=== PATIENT | male | born 1945 | race Caucasian/White ===

== ENCOUNTER 2016-12-06 12:47 | Emergency (ER) | payer MEDICARE, OTHER ==
[~2016-12-06] VITALS: Ht 177.8 cm; Wt 65.5 kg
[~2016-12-06 12:47] MED LIST: ALBU0.63 NEB; ALLO300T2 PO; LEVA500T PO; METO50TA PO; OXYC1SOL5 PO; PERI8.6T PO; PROT40TA PO; ZOFR4TAB3 SL
[2016-12-06 12:50] VITALS: BP 125/67; PULSE 90; RESP 20; O2SAT 96
[2016-12-06] MEDS ORDERED: METO50TA PO (13:38)
[2016-12-06] MEDS ORDERED: REGO40TA (13:38)
[2016-12-06] MEDS ORDERED: ALLO300T2 PO (13:38)
[2016-12-06] MEDS ORDERED: VENTAER INH (13:38)
[2016-12-06] MEDS ORDERED: PROT40TA PO (13:40)
[2016-12-06] MEDS ORDERED: ONDA4TAB7 SL (13:40)
[2016-12-06] MEDS ORDERED: SENN1TAB PO (13:40)
[2016-12-06] MEDS ORDERED: OXYC1TAB63 PO (13:40)
[2016-12-06 13:45] VITALS: BP 117/76; PULSE 87; RESP 18; O2SAT 96
[2016-12-06 13:52] VITALS: TEMP 98.6
[2016-12-06] MEDS ORDERED: SODIUM CHLORIDE 0.9% FLUSH 10 ML FLUSH IVF PRN (14:00)
--- NOTE | 2016-12-06 14:02 | PD ---
HPI Chief Complaint: General Weakness Time Seen by Provider: 13:56 Travel History International Travel<30 days: No Contact w/Intl Traveler<30days: No Traveled to known affect area: No History of Present Illness HPI Patient comes in complaining of possible pneumonia. Patient states he woke in the middle of the night having some reflux took some medication which alleviated his symptoms and he went back to sleep. Patient then awoke a few hours later felt he was wheezing in his chest. Patient concerning may have aspirated something. Patient is on chemotherapy for colon cancer and had "presumable pneumonia" this past June and was treated with Levaquin at that time. Patient denies any chest pain, shortness of breath, nausea, vomiting, abdominal pain, numbness or tingling anywhere. Patient reports when he awoke wheezing is also having some chills and rigors. Patient reports she was having some pleuritic chest pains right posterior thoracic cavity with deep inspiration that has since resolved. Denies any known fevers. Patient reports he is on chemotherapy for colon cancer and sees Dr. Campbell. 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 PFSH Past Medical History Cancer: Yes Cardiovascular Problems: Yes (septic shock hx=irreg heart rate 2014) Chemotherapy: Yes Diabetes: No Endocrine: No Gastrointestinal Disorders: Yes (CELIAC DISEASE; GERD, colon ca) GERD: Yes Genitourinary: No Hiatal Hernia: Yes Hypertension: Yes Immune Disorder: No Implanted Vascular Access Dvce: Yes (INFUSA PORT) Musculoskeletal: No Neurologic: No Psychiatric: No Reproductive: No Respiratory: No Thyroid Disease: No Past Surgical History Abdominal Surgery: Yes (MANDO ING HERNIAS, r jose colectomy) AICD: No Body Medical Devices: r side infusaport Genitourinary Surgery: Yes (TURP) Joint Replacement: No Pacemaker: No Other Surgery: Yes (colon TUMOR REMOVAL) Social History Alcohol Use: Yes (occ) Tobacco Use: No Substance Use: No Allergies-Medications (Allergen,Severity, Reaction): Coded Allergies: Sulfa (Verified Allergy, Unknown, 12/06/16) Reported Meds & Prescriptions Reported Meds & Active Scripts Active Augmentin (Amoxicillin-Clavulanate) 875-125 Mg Tab 1 Tab PO BID 10 Days Accuneb 0.63 mg/3 ml (Albuterol Sulfate) 0.63 Mg/3 Ml Neb 0.63 Mg NEB Q4HR NEB Tala-Colace 8.6-50 mg (Sennosides-Docusate Sodium) 1 Tab Tab 1 Tab PO HS PRN Oxycodone/Acetaminophen 5-325 mg/5Ml (Oxycodone W/ Acetaminophen) 5 mg/325 mg Tab 1 Tab PO Q4H PRN Metoprolol Tartrate 50 mg (Metoprolol Tartrate) 50 Mg Tab 100 Mg PO BID 30 Days Reported Senna-Plus (Sennosides-Docusate Sodium) 8.6-50 Mg Tab 1 Tab PO DAILY Protonix (Pantoprazole Sodium) 40 Mg Tab 40 Mg PO DAILY Oxycodone-Acetaminophen 5-325 mg Tab 1 Tab PO Q6H PRN Ondansetron Odt 4 Mg Tab 4 Mg SL Q6HR PRN Metoprolol Tartrate 50 Mg Tab 50 Mg PO BID Allopurinol 300 Mg Tab 300 Mg PO DAILY Ventolin Hfa 18 GM Inh (Albuterol Sulfate) 90 Mcg/Act Aer 2 Puff INH Q4-6H PRN Stivarga (Regorafenib) 40 Mg Tablet Zofran ODT (Ondansetron HCl) 4 Mg Tab 4 Mg SL Q6H PRN FOR NAUSEA/VOMITING Protonix (Pantoprazole Sodium) 40 Mg Tabdr 40 Mg PO DAILY Allopurinol 300 Mg Tab 300 Mg PO DAILY Review of Systems Except as stated in HPI: all other systems reviewed are Neg Physical Exam Narrative GENERAL: Well-developed, well nourished, in no acute distress, and non-ill appearing. SKIN: Focused skin assessment warm and dry. Port noted right anterior chest wall. HEAD: Atraumatic. Normocephalic. EYES: Pupils equal and round. EOMI. No scleral icterus. No injection or drainage. ENT: No nasal bleeding or discharge. Mucous membranes pink and moist. NECK: Trachea midline. No JVD. Supple. No nuclear rigidity. CARDIOVASCULAR: Regular rate and rhythm. No murmur appreciated. RESPIRATORY: No accessory muscle use. No respiratory distress. Clear to auscultation. Breath sounds equal bilaterally. GASTROINTESTINAL: Abdomen soft, non-tender, nondistended. Hepatic and splenic margins not palpable. No pulsatile mass. MUSCULOSKELETAL: No obvious deformities. No clubbing. No cyanosis. No edema. Full range of motion. NEUROLOGICAL: Awake and alert. No obvious cranial nerve deficits. Motor grossly within normal limits. Normal speech. PSYCHIATRIC: Appropriate mood and affect; insight and judgment normal. Data Data Last Documented VS Vital Signs Date Time Temp Pulse Resp B/P Pulse Ox O2 Delivery O2 Flow Rate FiO2 12/06/16 16:21 85 16 104/72 95 Room Air 12/06/16 13:52 98.6 Orders Electrocardiogram (12/06/16 13:50) Basic Metabolic Panel (Bmp) (12/06/16 13:50) Complete Blood Count With Diff (12/06/16 13:50) Chest, Single Ap (12/06/16 13:50) Sodium Chloride 0.9% Flush (Ns Flush) (12/06/16 14:00) Ckmb (Isoenzyme) Profile (12/06/16 15:09) Magnesium (Mg) (12/06/16 15:09) Prothrombin Time / Inr (Pt) (12/06/16 15:09) Act Partial Throm Time (Ptt) (12/06/16 15:09) Troponin I (12/06/16 15:09) Labs Laboratory Tests Test 12/06/16 12/06/16 13:54 15:16 White Blood Count 11.8 TH/MM3 Red Blood Count 5.10 MIL/MM3 Hemoglobin 16.2 GM/DL Hematocrit 49.3 % Mean Corpuscular Volume 96.7 FL Mean Corpuscular Hemoglobin 31.8 PG Mean Corpuscular Hemoglobin 32.9 % Concent Red Cell Distribution Width 16.8 % Platelet Count 113 TH/MM3 Mean Platelet Volume 8.9 FL Neutrophils (%) (Auto) 84.0 % Lymphocytes (%) (Auto) 7.6 % Monocytes (%) (Auto) 8.2 % Eosinophils (%) (Auto) 0.0 % Basophils (%) (Auto) 0.2 % Neutrophils # (Auto) 9.9 TH/MM3 Lymphocytes # (Auto) 0.9 TH/MM3 Monocytes # (Auto) 1.0 TH/MM3 Eosinophils # (Auto) 0.0 TH/MM3 Basophils # (Auto) 0.0 TH/MM3 CBC Comment DIFF FINAL Differential Comment Sodium Level 138 MEQ/L Potassium Level 3.8 MEQ/L Chloride Level 101 MEQ/L Carbon Dioxide Level 24.4 MEQ/L Anion Gap 13 MEQ/L Blood Urea Nitrogen 16 MG/DL Creatinine 1.38 MG/DL Estimat Glomerular Filtration 51 ML/MIN Rate Random Glucose 108 MG/DL Calcium Level 9.1 MG/DL Magnesium Level 1.6 MG/DL Total Creatine Kinase 68 U/L Troponin I LESS THAN 0.02 NG/ML Prothrombin Time 12.8 SEC Prothromb Time International 1.2 RATIO Ratio Activated Partial 30.9 SEC Thromboplast Time MDM Medical Decision Making Medical Screen Exam Complete: Yes Emergency Medical Condition: Yes Interpretation(s) EKG reviewed by Dr. Valenzuela shows sinus rhythm with ventricular rate of 83. No STEMI. Chest x-ray read by the radiologist shows: Patchiness in the right lung base consistent with possible pneumonia. Clinical correlation is recommended. Differential Diagnosis Pneumonia, pleurisy, electrolyte abnormality, other Narrative Course 1515 patient reassess resting very comfortably with no complaints. Awaiting chest x-ray results. Discussed with patient secondary to this complaining of waking with heartburn that he has not had an ulcer 20 years will check cardiac markers, but this is unlikely cardiac etiology. Patient does not believe it is cardiac etiology states that it was classic reflux symptoms. A chest x-ray didn 't show pneumonia. Patient is comfortable and wanting to go home with antibiotics for outpatient follow-up versus being admitted to the hospital. The patient is non-ill appearing and is in no respiratory distress and comfortable. The patient moves air well and oxygen saturations are normal. Chest x-ray revealed evidence of pneumonia. The patient looks great and wants to be discharged home on outpatient therapy. Plan of care and management were discussed with the patient who agreed with plan. The patient was instructed to follow up with their physician and instructed to return if worsens, progressively worsening shortness of breath or difficulty breathing, persistent fever, chest pains or discomfort, inability to keep medication or fluids down with or without vomiting, or as needed or unable to establish follow up within a timely manner. Patient in no obvious distress upon re-evaluation. All pertinent laboratory/ Radiology result(s) discussed with patient/family. Discussed patient with Dr. Valenzuela prior to discharge, who is in agreement with plan of care and disposition. Patient was asked if they wanted to speak to my attending, which the patient did not wish to do at this time. Any questions/concerns in reference to patient diagnosis/condition discussed and clarified prior to patient's discharge. Reinforced sheer importance of close follow up with patient 's primary physician or primary care clinic. Instructed patient to return to ED immediately, if symptoms return/worsen. Pt showed understanding of above instructions. Further instructions and recommendations were detailed in discharge paperwork. Pt ambulated without difficulty out of ED at discharge. Physician Communication Physician Communication [address] vázquez patient's oncologist who recommended starting patient on Augmentin and follow-up with his office in the week. Diagnosis Primary Impression: Pneumonia Qualified Code: J18.1 - Pneumonia of right lower lobe due to infectious organism Patient Instructions: Community Acquired Pneumonia (ED), General Instructions Additional Instructions: Follow-up with Dr. Campbell in one week for reevaluation. Take all medication as prescribed. Return to the emergency department if symptoms get worse. Med/Other Pt SpecificInfo: Prescription(s) given Scripts Amoxicillin-Clavulanate (Augmentin)875-125 Mg Tab1 Tab PO BID 10 Days Ref 0 Prov:Leo Valenzuela MD 12/06/16 Disposition: 01 DISCHARGE HOME Condition: Stable Felipe Kulkarni Dec 06, 2016 14:02
[2016-12-06 14:15] LABS: AUTOMATED NEUTROPHIL # 9.9 TH/MM3 (1.8-7.7); BASOPHIL % 0.2 % (0.0-2.0); HEMATOCRIT 49.3 % (39.0-51.0); HEMO FLAGS DIFF FINAL; LYMPH % 7.6 % (9.0-44.0); LYMPHOCYTE # 0.9 TH/MM3 (1.0-4.8); MEAN CELL VOLUME 96.7 FL (80.0-100.0); MEAN CORPUSCULAR HEMOGLOBIN 31.8 PG (27.0-34.0); MEAN CORPUSCULAR HGB CONC 32.9 % (32.0-36.0); MONO % 8.2 % (0.0-8.0); PLATELET COUNT 113 TH/MM3 (150-450); RED CELL DISTRIBUTION WIDTH 16.8 % (11.6-17.2); WHITE BLOOD COUNT 11.8 TH/MM3 (4.0-11.0)
[2016-12-06 14:28] LABS: BICARBONATE 24.4 MEQ/L (21.0-32.0); POTASSIUM 3.8 MEQ/L (3.5-5.1)
--- NOTE | 2016-12-06 15:09 | EKG ---
Date Performed: 12/06/2016 Time Performed: 13:35:04 PTAGE: 71 years EKG: Sinus rhythm MARKED LEFT AXIS DEVIATION ABNORMAL ECG NO PREVIOUS TRACING DOCTOR: Ameya Culver Interpretating Date/Time 12/06/2016 15:07:36
[2016-12-06 16:05] LABS: APTT (PATIENT) 30.9 SEC (24.3-30.1); INTERNATIONAL NORMALIZED RATIO 1.2 RATIO; PROTHROMBIN TIME - PATIENT 12.8 SEC (9.8-11.6)
--- NOTE | 2016-12-06 16:20 | RADRPT ---
EXAM DATE/TIME: 12/06/2016 14:16 [facility] COMPARISON: CHEST SINGLE AP, December 25, 2015, 8:50. INDICATIONS : Wheezing. Short of breath. MEDICAL HISTORY : Carcinoma, colon. Hypertension. Cardiovascular disease. Polycystic renal disease; Lung metastasis. SURGICAL HISTORY : None. ENCOUNTER: Initial ACUITY: 1 day PAIN SCORE: 1/10 LOCATION: Bilateral chest FINDINGS: Minimal patchiness is noted within the right lung base consistent with possible pneumonia. Clinical correlation is recommended. A right internal jugular [id number] has its tip in the right atrium. There is no pneumothorax. The left lung is clear. CONCLUSION: 1. Patchiness in the right lung base consistent with possible pneumonia. Clinical correlation is re commended. Luca Salter MD on December 06, 2016 at 16:15 Board Certified Radiologist. This report was verified electronically.
[2016-12-06 16:21] VITALS: BP 104/72; PULSE 85; RESP 16; O2SAT 95
[2016-12-06 16:21] LABS: MAGNESIUM 1.6 MG/DL (1.5-2.5)
[2016-12-06 16:26] LABS: CREATINE KINASE 68 U/L (39-308)
[2016-12-06] MEDS ORDERED: AUGM875T3 PO (16:36)
== END 2016-12-06 16:56 | disposition home or self-care (01) ==
LOC: NEPC 12:47
DX: C18.9 Malignant neoplasm of colon, unspecified (principal); J18.1 Lobar pneumonia, unspecified organism; K21.9 Gastro-esophageal reflux disease without esophagitis; I10 Essential (primary) hypertension; R94.31 Abnormal electrocardiogram [ECG] [EKG]
CPT/HCPCS: 71010; 80048; 82550; 83735; 84484; 85025; 85610; 85730; 93005; 99285

== ENCOUNTER 2017-04-05 09:36 | Emergency (ER) | payer MEDICARE, OTHER ==
[~2017-04-05] VITALS: Ht 182.9 cm; Wt 65.0 kg
[~2017-04-05 09:36] MED LIST changes: +AUGM875T3 PO; -LEVA500T PO; +ONDA4TAB7 SL; +OXYC1TAB63 PO; +REGO40TA; +SENN1TAB PO; +VENTAER INH
[2017-04-05 09:42] VITALS: BP 68/51; PULSE 122; RESP 22; TEMP 97.5; O2SAT 88
[2017-04-05 09:46] VITALS: BP 84/58; PULSE 113; RESP 16; TEMP 97.5; O2SAT 96
[2017-04-05] MEDS ORDERED: MORP1TAB24 PO (09:55)
--- NOTE | 2017-04-05 10:14 | PD ---
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 Pt states it was more "regurgitation" and did not remember if there was blood or if it looked black. States that immediately after that, he had some right sided, sharp pleuritic chest pain. Pt follows with Dr. Campbell and is currently in supportive care. States he has been having some diarrhea. Pt is adamant it is not PE. Denies any sob, nausea, focal weakness or numbness. Pt always has abdominal pain but not more than normal. PFSH Past Medical History Cancer: Yes (COLON) Cardiovascular Problems: Yes (septic shock hx=irreg heart rate 2014) Chemotherapy: Yes (NOT OF 02/10) Diabetes: No Endocrine: No Gastrointestinal Disorders: Yes (CELIAC DISEASE; GERD, colon ca) GERD: Yes Genitourinary: No Hiatal Hernia: Yes Hypertension: Yes Immune Disorder: No Implanted Vascular Access Dvce: Yes (INFUSA PORT) Medical other: Yes ("PALLIATIVE CARE") Musculoskeletal: No Neurologic: No Psychiatric: No Reproductive: No Respiratory: No Thyroid Disease: No Past Surgical History Abdominal Surgery: Yes (MANDO ING HERNIAS, r jose colectomy) AICD: No Body Medical Devices: r side infusaport Genitourinary Surgery: Yes (TURP) Joint Replacement: No Pacemaker: No Other Surgery: Yes (colon TUMOR REMOVAL) Social History Alcohol Use: Yes (occ) Tobacco Use: No Substance Use: No Allergies-Medications (Allergen,Severity, Reaction): Coded Allergies: Sulfa (Sulfonamide Antibiotics) (Unverified Allergy, Unknown, 02/09/17) Reported Meds & Prescriptions Reported Meds & Active Scripts Active Reported Morphine ER (Morphine Sulfate) 15 Mg Tab 17 Mg PO Q6HR Senna-Plus (Sennosides-Docusate Sodium) 8.6-50 Mg Tab 1 Tab PO DAILY Protonix (Pantoprazole Sodium) 40 Mg Tab 40 Mg PO DAILY Oxycodone-Acetaminophen 5-325 mg Tab 1 Tab PO Q6H PRN Ondansetron Odt 4 Mg Tab 4 Mg SL Q6HR PRN Metoprolol Tartrate 50 Mg Tab 50 Mg PO BID Allopurinol 300 Mg Tab 300 Mg PO DAILY Ventolin Hfa 18 GM Inh (Albuterol Sulfate) 90 Mcg/Act Aer 2 Puff INH Q4-6H PRN Review of Systems Except as stated in HPI: all other systems reviewed are Neg Physical Exam Narrative GENERAL: 71yo M in mild distress. SKIN: Focused skin assessment warm/dry. HEAD: Atraumatic. Normocephalic. EYES: Pupils equal and round. No scleral icterus. No injection or drainage. ENT: No nasal bleeding or discharge. Mucous membranes pink and moist. NECK: Trachea midline. No JVD. CARDIOVASCULAR: Mildly tachycardic. No murmur appreciated. RESPIRATORY: No accessory muscle use. Clear to auscultation. Breath sounds equal bilaterally. GASTROINTESTINAL: Abdomen soft, +Mass in mid abdomen. No rebound tenderness or guarding. MUSCULOSKELETAL: No obvious deformities. No clubbing. No cyanosis. No edema. NEUROLOGICAL: Awake and alert. No obvious cranial nerve deficits. Motor grossly within normal limits. Normal speech. PSYCHIATRIC: Appropriate mood and affect; insight and judgment normal. Data Data Last Documented VS Vital Signs Date Time Temp Pulse Resp B/P (MAP) Pulse Ox O2 Delivery O2 Flow Rate FiO2 04/05/17 11:00 96 18 76/52 (60) 94 Room Air 04/05/17 09:46 97.5 Orders Orders Complete Blood Count With Diff (04/05/17 09:58) Comprehensive Metabolic Panel (04/05/17 09:58) Lipase (04/05/17 09:58) Urinalysis - C+S If Indicated (04/05/17 09:58) Electrocardiogram (04/05/17 ) Chest, Single Ap (04/05/17 ) Troponin I (04/05/17 09:58) Sodium Chlor 0.9% 1000 Ml Inj (Ns 1000 M (04/05/17 10:15) Sodium Chlor 0.9% 1000 Ml Inj (Ns 1000 M (04/05/17 11:45) Oxycodone-Acetamin 5-325 Mg (Percocet (04/05/17 12:45) Heparin Central Flush (Heparin Central F (04/05/17 13:15) Ed Discharge Order (04/05/17 13:02) Labs Laboratory Tests Test 04/05/17 10:20 White Blood Count 11.5 TH/MM3 Red Blood Count 3.49 MIL/MM3 Hemoglobin 11.9 GM/DL Hematocrit 35.0 % Mean Corpuscular Volume 100.3 FL Mean Corpuscular Hemoglobin 34.2 PG Mean Corpuscular Hemoglobin Concent 34.1 % Red Cell Distribution Width 18.2 % Platelet Count 275 TH/MM3 Mean Platelet Volume 9.3 FL Neutrophils (%) (Auto) 91.2 % Lymphocytes (%) (Auto) 1.2 % Monocytes (%) (Auto) 7.5 % Eosinophils (%) (Auto) 0.0 % Basophils (%) (Auto) 0.1 % Neutrophils # (Auto) 10.5 TH/MM3 Lymphocytes # (Auto) 0.1 TH/MM3 Monocytes # (Auto) 0.9 TH/MM3 Eosinophils # (Auto) 0.0 TH/MM3 Basophils # (Auto) 0.0 TH/MM3 CBC Comment DIFF FINAL Differential Comment Blood Urea Nitrogen 26 MG/DL Creatinine 1.91 MG/DL Random Glucose 123 MG/DL Total Protein 6.4 GM/DL Albumin 2.5 GM/DL Calcium Level 9.5 MG/DL Alkaline Phosphatase 627 U/L Aspartate Amino Transf (AST/SGOT) 58 U/L Alanine Aminotransferase (ALT/SGPT) 21 U/L Total Bilirubin 1.2 MG/DL Sodium Level 134 MEQ/L Potassium Level 3.7 MEQ/L Chloride Level 99 MEQ/L Carbon Dioxide Level 23.8 MEQ/L Anion Gap 11 MEQ/L Estimat Glomerular Filtration Rate 35 ML/MIN Troponin I 0.02 NG/ML Lipase 104 U/L [facility] Medical Decision Making Medical Screen Exam Complete: Yes Emergency Medical Condition: Yes Interpretation(s) EKG: Sinus tachycardia at 104bpm. LAD. TWI III. Differential Diagnosis Dehydration vs. electrolyte abnormality vs. PE vs. Pneumonia vs. UTI Narrative Course 71yo M with metastatic colon CA here with generalized weakness and an episode of "regurgitation". Pt also with right sided pleuritic chest pain. He states that he does not want a PE work up. He is saturating at 99% on RA, and does not have sob. However, he has cancer and tachycardia and I cannot r/o PE without further imaging. States he had recent PE work up before and does not want it. Labs reviewed, WBC 11.5. H/H is lower than baseline at 11.9/35.0. BUN/creatinine is also mildly more elevated than baseline at 26/1.91. Glucose 123. Total bilirubin is elevated at 1.2 as well as AST and alk phos. Pt has several abdominal mass but otherwise nondistended with no rebound tenderness or guarding. Said he had bowel movement yesterday. Has not vomited here. Discussed with oncologist Dr. Campbell who recommends discharge home after second liter of NS IVF or observation to make sure there is no obstruction. BP has improved to 88/59 and HR is in the 90s. Pt feels much better. 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 He is on percocet at home and I gave him one dose here. Pt states he will return if symptoms worsen. Has not given UA yet. Return precautions given. Diagnosis Primary Impression: Generalized weakness Patient Instructions: General Instructions Departure Forms: Tests/Procedures Additional Instructions: Please follow up with Dr. Campbell as outpatient. Return to the ED if symptoms worsen. Med/Other Pt SpecificInfo: No Change to Meds Disposition: 01 DISCHARGE HOME Condition: Stable Mary Jo Raya DO Apr 05, 2017 10:14
[2017-04-05] MEDS ORDERED: SODIUM CHLOR 0.9% 1000 ML INJ 1,000 ML IV ONE ×2 (10:15→11:45)
--- NOTE | 2017-04-05 10:31 | RADRPT ---
EXAM DATE/TIME: 04/05/2017 10:11 [facility] COMPARISON: CHEST SINGLE AP, December 06, 2016, 14:16. INDICATIONS : Chest pain, short of breath. MEDICAL HISTORY : Tachycardia, septic shock SURGICAL HISTORY : None. ENCOUNTER: Initial ACUITY: 1 day PAIN SCORE: 2/10 LOCATION: Right chest FINDINGS: Patchy airspace disease with interstitial prominence is present throughout the right lung and has sig nificantly progressed since prior study. Minimal changes are also seen in the left base. Heart and mediastinal structures are stable. [id number] remains in place. CONCLUSION: 1. Interstitial/alveolar process throughout the right lung which may represent inflammatory process. 2. No airspace disease left base 3. Otherwise stable chest. Syed Crooks MD on April 05, 2017 at 10:28 Board Certified Radiologist. This report was verified electronically.
[2017-04-05 10:41] LABS: AUTOMATED NEUTROPHIL # 10.5 TH/MM3 (1.8-7.7); BASOPHIL % 0.1 % (0.0-2.0); HEMO FLAGS DIFF FINAL; LYMPH % 1.2 % (9.0-44.0); LYMPHOCYTE # 0.1 TH/MM3 (1.0-4.8); MEAN CELL VOLUME 100.3 FL (80.0-100.0); MEAN CORPUSCULAR HEMOGLOBIN 34.2 PG (27.0-34.0); MEAN CORPUSCULAR HGB CONC 34.1 % (32.0-36.0); MONO % 7.5 % (0.0-8.0); NEUT % 91.2 % (16.0-70.0); PLATELET COUNT 275 TH/MM3 (150-450); RED BLOOD COUNT 3.49 MIL/MM3 (4.50-5.90); RED CELL DISTRIBUTION WIDTH 18.2 % (11.6-17.2); WHITE BLOOD COUNT 11.5 TH/MM3 (4.0-11.0)
[2017-04-05 11:00] VITALS: BP 76/52; PULSE 96; RESP 18; O2SAT 94
[2017-04-05 11:03] LABS: ALKALINE PHOSPHATASE 627 U/L (45-117); TOTAL BILIRUBIN ADULT 1.2 MG/DL (0.2-1.0)
[2017-04-05 11:05] LABS: ALT (GPT) 21 U/L (12-78); ANION GAP 11 MEQ/L (5-15); AST (GOT) 58 U/L (15-37); BICARBONATE 23.8 MEQ/L (21.0-32.0); BLOOD UREA NITROGEN 26 MG/DL (7-18); CHLORIDE 99 MEQ/L (98-107); GLOMERULAR FILTRATION RATE 35 ML/MIN (>89); POTASSIUM 3.7 MEQ/L (3.5-5.1); SODIUM (NA) 134 MEQ/L (136-145)
[2017-04-05] MEDS ORDERED: oxyCODONE/ACETAMINOPHEN 5 MG/325 MG TAB PO ONE (12:45)
[2017-04-05 13:00] VITALS: BP 88/59; PULSE 96; RESP 16; O2SAT 99
--- NOTE | 2017-04-07 00:10 | EKG ---
Date Performed: 04/05/2017 Time Performed: 10:04:02 PTAGE: 71 years EKG: SINUS TACHYCARDIA ABNORMAL RHYTHM ECG PREVIOUS TRACING : 12/06/2016 13.35 Compared to the previous tracing, rate has increased DOCTOR: Garret Costa Interpretating Date/Time 04/07/2017 00:09:40
== END 2017-04-05 13:41 | disposition home or self-care (01) ==
LOC: NEPE 09:36
DX: C18.9 Malignant neoplasm of colon, unspecified (principal); C78.6 Secondary malignant neoplasm of retroperitoneum and peritoneum; R53.1 Weakness; R00.0 Tachycardia, unspecified; I10 Essential (primary) hypertension
CPT/HCPCS: 71010; 80053; 83690; 84484; 85025; 93005; 96360; 96361; 99285; J1642; J7030